=== PATIENT | male | born 1960 | race Caucasian/White ===

== ENCOUNTER → 2016-08-23 | Outpatient (CLI) | payer BC ==
[~2016-08-23] MED LIST: ADDERALL10 MG PO; CRESTOR5 MG PO; LEXAPRO 10MG10 MG PO; ZITHROMAX 250M250 MG PO
== END ==
LOC: COL.RAD 12:48
DX: M25.512 Pain in left shoulder (principal)
CPT/HCPCS: J3301; Q9967

== ENCOUNTER → 2016-09-27 | Outpatient (CLI) | payer BC | LOC: BHSO 15:31 | DX: F90.0 Attention-deficit hyperactivity disorder, predominantly inattentive type (principal) ==

== ENCOUNTER → 2017-04-11 | Outpatient (CLI) | payer BC | LOC: BHSO 08:23 | DX: F90.0 Attention-deficit hyperactivity disorder, predominantly inattentive type (principal) ==

== ENCOUNTER 2017-05-13 15:04 | Emergency (ER) | payer BC ==
[~2017-05-13] VITALS: Ht 177.8 cm; Wt 81.8 kg
[2017-05-13 15:07] VITALS: TEMP 99.4
[2017-05-13] MEDS ORDERED: LEVAQUIN 750MG750 M1 PO (16:33)
[2017-05-13 16:34] VITALS: BP 132/82; PULSE 72
== END 2017-05-13 16:40 | disposition home or self-care (01) ==
LOC: COL.ER 15:04
DX: J18.1 Lobar pneumonia, unspecified organism (principal)

== ENCOUNTER 2017-05-31 14:21 | Inpatient (IN) | payer BC ==
[~2017-05-31] VITALS: Ht 177.8 cm; Wt 81.3 kg
[~2017-05-31 14:21] MED LIST changes: -ADVIL200 MG PO; -ASPIRIN 81M81 MG/TA2 PO; -DOXYCYCLINE HY100 MG PO; -ELIQUIS 5MG PO; -TYLENOL 500MG500 MG PO
[2017-05-31 15:35] VITALS: BP 143/78; PULSE 75; TEMP 98.9
[2017-05-31] MEDS ORDERED: DOXYCYCLINE HY100 MG PO (16:00)
[2017-05-31] MEDS ORDERED: ASPIRIN 81M81 MG/TA2 PO (16:01)
[2017-05-31] MEDS ORDERED: TYLENOL 500MG500 MG PO ×2 (16:02→16:04)
[2017-05-31] MEDS ORDERED: ADVIL200 MG PO (16:02)
[2017-05-31 17:39] LABS: BASO # 0.1 (0.0-0.2); BASO % 0.7 % (0.0-2.0); EOS # 0.2 (0.0-0.7); GRAN # 6.1 (1.4-6.5); GRAN % 68.7 % (42.2-75.2); HEMATOCRIT 39.7 % (42.0-52.0); HEMOGLOBIN 13.9 g/dl (13.5-18.0); LYMPH # 1.6 (1.2-3.4); LYMPH % 18.6 % (20.0-51.0); MEAN CELL VOLUME 84 fl (80.0-100.0); MEAN CORPUSCULAR HEMOGLOBIN 29 pg (27.0-31.0); MEAN CORPUSCULAR HGB CONC 35 g/dl (33.0-37.0); MEAN PLATELET VOLUME 9.8 fl (7.4-10.4); MONO # 0.8 (0.1-0.6); MONO % 9.3 % (1.7-9.3); PLATELET COUNT 218 K/mm3 (130-400); RED BLOOD COUNT 4.75 M/mm3 (4.20-5.60); REDCELL DISTRIBUTION WIDTH-CV 11.8 % (11.5-14.5)
[2017-05-31 17:43] LABS: ALBUMIN 3.9 gm/dL (3.5-5.0); BILIRUBIN,TOTAL 0.9 mg/dL (0.0-1.0); CALCIUM 9.2 mg/dL (8.4-10.2); CREATININE, serum 0.84 mg/dL (0.66-1.25); MAGNESIUM 1.8 mg/dL (1.6-2.3); POTASSIUM 4.4 mmol/L (3.4-5.0); TOTAL PROTEIN 6.9 gm/dL (6.4-8.2)
[2017-05-31 17:50] LABS: INR 1.2 (0.8-3.0); PROTHROMBIN TIME 14.3 SECONDS (9.7-12.8)
[2017-05-31 22:10] VITALS: BP 145/73; PULSE 80; TEMP 98.6
[2017-06-01 05:27] VITALS: BP 121/67; PULSE 65; TEMP 97.9
[2017-06-01 07:21] LABS: BASO # 0.1 (0.0-0.2); BASO % 0.9 % (0.0-2.0); EOS # 0.3 (0.0-0.7); EOS % 3.3 % (0-4.0); GRAN # 4.9 (1.4-6.5); GRAN % 59.6 % (42.2-75.2); HEMATOCRIT 40.6 % (42.0-52.0); HEMOGLOBIN 13.9 g/dl (13.5-18.0); LYMPH % 24.1 % (20.0-51.0); MEAN CELL VOLUME 85 fl (80.0-100.0); MEAN CORPUSCULAR HEMOGLOBIN 29 pg (27.0-31.0); MEAN CORPUSCULAR HGB CONC 34 g/dl (33.0-37.0); MONO # 0.9 (0.1-0.6); MONO % 11.4 % (1.7-9.3); PLATELET COUNT 228 K/mm3 (130-400); RED BLOOD COUNT 4.77 M/mm3 (4.20-5.60); REDCELL DISTRIBUTION WIDTH-CV 11.9 % (11.5-14.5)
[2017-06-01 07:28] LABS: CREATININE, serum 0.85 mg/dL (0.66-1.25); POTASSIUM 4.3 mmol/L (3.4-5.0)
[2017-06-01 09:07] VITALS: BP 133/70; PULSE 73; TEMP 97.6
[2017-06-01 13:33] VITALS: BP 126/73; PULSE 67; TEMP 98.1
[2017-06-01 17:32] VITALS: BP 117/72; PULSE 73; TEMP 98.4
[2017-06-01 22:34] VITALS: BP 134/69; PULSE 78; TEMP 99.6
[2017-06-02 00:25] LABS: HOMOCYSTEINE 8.9 umol/L (5.5-16.2)
[2017-06-02 02:06] VITALS: BP 133/80; PULSE 68; TEMP 98.2
[2017-06-02 05:28] VITALS: BP 125/60; PULSE 78; TEMP 98.6
[2017-06-02 07:53] LABS: BASO % 0.4 % (0.0-2.0); EOS # 0.3 (0.0-0.7); EOS % 3.5 % (0-4.0); GRAN # 5.9 (1.4-6.5); GRAN % 65.6 % (42.2-75.2); HEMATOCRIT 40.8 % (42.0-52.0); HEMOGLOBIN 14.2 g/dl (13.5-18.0); LYMPH # 1.7 (1.2-3.4); LYMPH % 18.8 % (20.0-51.0); MEAN CELL VOLUME 84 fl (80.0-100.0); MEAN CORPUSCULAR HEMOGLOBIN 29 pg (27.0-31.0); MEAN CORPUSCULAR HGB CONC 35 g/dl (33.0-37.0); MEAN PLATELET VOLUME 9.9 fl (7.4-10.4); PLATELET COUNT 250 K/mm3 (130-400); RED BLOOD COUNT 4.84 M/mm3 (4.20-5.60); REDCELL DISTRIBUTION WIDTH-CV 11.8 % (11.5-14.5)
[2017-06-02 08:03] LABS: CALCIUM 9.2 mg/dL (8.4-10.2); CREATININE, serum 0.89 mg/dL (0.66-1.25); POTASSIUM 4.3 mmol/L (3.4-5.0)
[2017-06-02 09:29] VITALS: BP 113/48; PULSE 77; TEMP 98.9
[2017-06-02 11:43] LABS: TROPONIN-I < 0.012 ng/mL (0.000-0.034)
[2017-06-02 12:32] LABS: FACTOR V LEIDEN MUTATION B Negative (Negative); PT G20210A MUTATION B Negative (Negative)
[2017-06-02] MEDS ORDERED: ELIQUIS 5MG PO ×3 (13:19→16:11)
[2017-06-04 12:00] LABS: LUPUS ANTICOAGULANT INR 1.4 (()); LUPUS ANTICOAGULANT PT 14.9 sec (())
[2017-06-05 19:15] LABS: BETA-2 GPI IGG AABS <9.4 U/mL (()); BETA-2 GPI IGM AABS <9.4 U/mL (())
== END 2017-06-02 14:45 | disposition home or self-care (01) | DRG 176 ==
LOC: MEDICAL 14:21 → SURG 15:28
PROVIDERS: Internal Medicine; Internal Medicine Pulmonary Disease; Physician Assistant
DX: I26.99 Other pulmonary embolism without acute cor pulmonale (principal); J90 Pleural effusion, not elsewhere classified; I82.411 Acute embolism and thrombosis of right femoral vein; I82.431 Acute embolism and thrombosis of right popliteal vein; E87.1 Hypo-osmolality and hyponatremia; N41.1 Chronic prostatitis; F90.9 Attention-deficit hyperactivity disorder, unspecified type; F32.9 Major depressive disorder, single episode, unspecified; E78.5 Hyperlipidemia, unspecified
CPT/HCPCS: 99222-AI; 99231-AI; 99232-AI; 99238; G0378; J1644; Q9967

== ENCOUNTER → 2017-05-31 | Outpatient (CLI) | payer BC ==
[~2017-05-31] MED LIST changes: +ADVIL200 MG PO; +ASPIRIN 81M81 MG/TA2 PO; +DOXYCYCLINE HY100 MG PO; +ELIQUIS 5MG PO; +LEVAQUIN 750MG750 M1 PO; +TYLENOL 500MG500 MG PO
== END ==
LOC: COL.VAS 10:22
DX: I82.411 Acute embolism and thrombosis of right femoral vein (principal); I82.431 Acute embolism and thrombosis of right popliteal vein; I26.99 Other pulmonary embolism without acute cor pulmonale; J90 Pleural effusion, not elsewhere classified; R91.8 Other nonspecific abnormal finding of lung field; Z98.890 Other specified postprocedural states
CPT/HCPCS: Q9967

== ENCOUNTER → 2017-11-23 | Outpatient (CLI) | payer BC ==
[~2017-11-23] MED LIST changes: +ADVIL200 MG PO; +ASPIRIN 81M81 MG/TA2 PO; +DOXYCYCLINE HY100 MG PO; +ELIQUIS 5MG PO; +TYLENOL 500MG500 MG PO
== END ==
LOC: BHSO 08:43
DX: F90.0 Attention-deficit hyperactivity disorder, predominantly inattentive type (principal)
CPT/HCPCS: G0463

== ENCOUNTER → 2017-11-30 | Outpatient (CLI) | payer BC | LOC: COL.VAS 09:14 | DX: I26.99 Other pulmonary embolism without acute cor pulmonale (principal); I82.411 Acute embolism and thrombosis of right femoral vein | CPT/HCPCS: Q9967 ==

== ENCOUNTER → 2017-12-10 | Outpatient (CLI) | payer BC | LOC: COL.VAS 08:52 | DX: I82.432 Acute embolism and thrombosis of left popliteal vein (principal); I82.411 Acute embolism and thrombosis of right femoral vein ==

== ENCOUNTER → 2018-03-01 | Outpatient (CLI) | payer BC | LOC: COL.VAS 14:04 | DX: I26.99 Other pulmonary embolism without acute cor pulmonale (principal); I82.411 Acute embolism and thrombosis of right femoral vein; I82.431 Acute embolism and thrombosis of right popliteal vein ==

== ENCOUNTER → 2018-06-05 | Outpatient (CLI) | payer BC | LOC: COL.VAS 09:14 | DX: I82.431 Acute embolism and thrombosis of right popliteal vein (principal); I82.411 Acute embolism and thrombosis of right femoral vein; I26.99 Other pulmonary embolism without acute cor pulmonale ==

== ENCOUNTER → 2018-06-19 | Outpatient (CLI) | payer BC | LOC: BHSO 14:20 | DX: F90.0 Attention-deficit hyperactivity disorder, predominantly inattentive type (principal) | CPT/HCPCS: G0463 ==

== ENCOUNTER → 2018-12-13 | Outpatient (CLI) | payer BC | LOC: BHSO 08:23 | DX: F90.0 Attention-deficit hyperactivity disorder, predominantly inattentive type (principal) | CPT/HCPCS: G0463 ==

== ENCOUNTER → 2019-06-10 | Outpatient (CLI) | payer BC | LOC: BHSO 08:41 | DX: F90.0 Attention-deficit hyperactivity disorder, predominantly inattentive type (principal) | CPT/HCPCS: G0463 ==

== ENCOUNTER → 2019-12-24 | Outpatient (CLI) | payer BC | LOC: BHSO 08:42 | DX: F90.0 Attention-deficit hyperactivity disorder, predominantly inattentive type (principal) | CPT/HCPCS: G0463 ==

== ENCOUNTER → 2021-05-17 | Outpatient (CLI) | payer BC | LOC: COL.RAD 12:12 | DX: M25.511 Pain in right shoulder (principal) | CPT/HCPCS: J3301 ==

== ENCOUNTER → 2022-07-06 | Outpatient (CLI) | payer BC | LOC: COL.VAS 11:05 | DX: M79.89 Other specified soft tissue disorders (principal); M79.605 Pain in left leg ==